=== PATIENT | female | born 1945 | race Caucasian/White ===

== ENCOUNTER → 2017-04-02 | Outpatient (CLI) | payer OTHER ==
--- NOTE | 2017-04-02 15:15 | RAD ---
PA and lateral chest radiographs 04/02/2017 Clinical history: Cough and fever for one week. PA and lateral digital radiographs of the chest were obtained. Comparison study is dated 02/27/2016. The cardiac silhouette is normal in size and configuration. The thoracic aorta is mildly tortuous. A patchy area of infiltrate/atelectasis is seen involving the lingula, inferiorly. The right lung is clear. No pneumothorax or pleural effusion is seen. Degenerative changes are seen involving the thoracic spine. Impression: Patchy area of infiltrate/atelectasis is seen involving the lingula of the left upper lobe.
== END | disposition home or self-care (01) ==
LOC: DXRADRC 14:47
PROVIDERS: ATTEND Nurse Practitioner Family
DX: R05 Cough (principal); R50.9 Fever, unspecified; R51 Headache; J45.909 Unspecified asthma, uncomplicated; Z87.891 Personal history of nicotine dependence
CPT/HCPCS: 71020

== ENCOUNTER → 2017-04-06 | Outpatient (CLI) | payer OTHER ==
--- NOTE | 2017-04-06 16:02 | RAD ---
Chest, 2 views, 04/06/2017: History: Cough, fever, chills Comparison is made to a study from 04/02/2017. The heart size is normal. There is mild ongoing streaky infiltrate in the left base involving the anterior segment of the left lower lobe and/or the inferior lingula. A similar appearance was present on the previous study. The right lung is clear. There is no evidence of pleural fluid. IMPRESSION: Mild unchanged left basilar infiltrate compatible with pneumonia.
== END | disposition home or self-care (01) ==
LOC: DXRADRC 14:55
PROVIDERS: ATTEND Nurse Practitioner Family
DX: J18.9 Pneumonia, unspecified organism (principal); R91.8 Other nonspecific abnormal finding of lung field; R50.9 Fever, unspecified; J45.909 Unspecified asthma, uncomplicated
CPT/HCPCS: 71020

== ENCOUNTER → 2017-04-20 | Outpatient (CLI) | payer OTHER ==
--- NOTE | 2017-04-20 14:38 | RAD ---
Indication pneumonia for several weeks. PA and lateral views of the chest were obtained. Comparison is made to an examination 2 weeks previously. Patchy infiltrate at the left lung base persists but appears to have improved slightly. A new finding in the chest is not seen. Heart and pulmonary vessels are similar. There is no pleural fluid or pneumothorax. IMPRESSION: Patchy infiltrate, compatible with pneumonia, persists at the left lung base but appears improved slightly relative to the study 2 weeks ago
== END | disposition home or self-care (01) ==
LOC: DXRADRC 14:25
PROVIDERS: ATTEND Nurse Practitioner Family
DX: R91.8 Other nonspecific abnormal finding of lung field (principal)
CPT/HCPCS: 71020

== ENCOUNTER → 2017-05-04 | Outpatient (CLI) | payer OTHER ==
--- NOTE | 2017-05-04 15:16 | RAD ---
Chest x-ray Indication: History of recent pneumonia. Follow-up. Technique: PA single view of the chest Comparison: Previous study from 04/20/2017 Findings: Heart is normal in size. Lungs are hyperinflated without consolidation or interstitial opacities.. Cc and left lower lobe abnormality is not seen on current study. No pneumothorax or pleural effusion. Biapical pleural thickening noted. Visualized bony thorax is within normal limits. Impression: No acute cardiopulmonary process. Findings of COPD.
== END | disposition home or self-care (01) ==
LOC: DXRADRC 14:10
PROVIDERS: ATTEND Nurse Practitioner Family
DX: J44.9 Chronic obstructive pulmonary disease, unspecified (principal); J18.9 Pneumonia, unspecified organism
CPT/HCPCS: 71020

== ENCOUNTER → 2017-08-10 | Outpatient (CLI) | payer OTHER ==
--- NOTE | 2017-08-10 17:23 | RAD ---
Indication: Fall downstairs. Technique: AP and lateral views of the sacrum. Comparison: None Findings: Degenerative disc disease noted of the visualized lumbar spine. The lumbosacral spine is in normal anatomic alignment. No acute fractures. SI joints within normal limits. Impression: No acute findings. Multilevel degenerative disc disease of the lumbar spine.
== END | disposition home or self-care (01) ==
LOC: DXRAD 12:23
PROVIDERS: ATTEND Nurse Practitioner Family
DX: M53.3 Sacrococcygeal disorders, not elsewhere classified (principal); M51.36 Other intervertebral disc degeneration, lumbar region; W10.9XXA Fall (on) (from) unspecified stairs and steps, initial encounter
CPT/HCPCS: 72220

== ENCOUNTER 2017-10-28 17:54 | Observation (INO) | payer OTHER ==
[~2017-10-28] VITALS: Ht 162.6 cm; Wt 58.1 kg
[2017-10-28] MEDS ORDERED: ASPIRIN 325 MG TABLET PO ONE (18:30)
--- NOTE | 2017-10-28 18:30 | ED.ADGEN ---
Past History Past Medical History: Bronchitis, COPD, Pneumonia, Other Adult General Chief Complaint Chief Complaint ".. I passed out leaving Dr. Cárdenas office... she was going to treat me for pneumonia...".." She was going to start me on Zithromax...".. " I am allergic to all antibiotics.. I just need some michelle tea...." HPI HPI Patient is a 72 year old female who presents with Hx. of fever, chills, coughing , dyspnea, wheezing and malaise. Patient was in Dr. Cárdenas's office and in the process of receiving x-ray to evaluate for pneumonia and patient had a complete loss of consciousness / syncopal episode. Patient sent to the emergency department for further evaluation and treatment. No other injuries in the fall and syncopal event. Patient does have some complaints of left ear pain prior to the fall. Patient does have an occasional coughing spasms with some production of yoo to brown sputum.. Patient does not get a flu vaccination. No recent travel. No specific ill contacts. Patient has had pneumonia on 3 previous episodes. Patient is accompanied with her granddaughter and daughter. Pt. reports multiple drug allergies or concerns that any antibiotic could kill her. Review of Systems Review of Systems Constitutional: Subjective history fever or chills [] Eyes: Denies change in visual acuity, redness, or eye pain [] HENT: Subjective history nasal congestion and sore throat [] Complaints of Lt ear pain. Respiratory: History of cough or shortness of breath [] Cardiovascular: No additional information not addressed in HPI [] GI: Denies abdominal pain, nausea, vomiting, bloody stools or diarrhea [] : Denies dysuria or hematuria [] Musculoskeletal: Denies back pain or joint pain [] Integument: Denies rash or skin lesions [] Neurologic: Denies headache, focal weakness or sensory changes [] Endocrine: Denies polyuria or polydipsia [] All other systems were reviewed and found to be within normal limits, except as documented in this note. Family History Family History Noncontributory Current Medications Current Medications Current Medications Medications (Trade) Dose Ordered Sig/Mehreen Start Time Stop Time Status Last Admin Dose Admin Albuterol/ Ipratropium (Duoneb) 3 ml 1X ONCE 10/28/17 19:00 10/28/17 19:10 DC Aspirin (Micah Aspirin) 325 mg 1X ONCE 10/28/17 18:30 10/28/17 19:08 DC Aspirin (Children'S Aspirin) 324 mg 1X ONCE 10/28/17 19:00 10/28/17 19:08 DC 10/28/17 19:00 324 MG Ceftriaxone Sodium 1 gm/ Sodium Chloride 50 ml @ 100 mls/hr 1X ONCE 10/28/17 18:30 10/29/17 01:34 DC Ceftriaxone Sodium (Rocephin) 1 gm 1X ONCE 10/28/17 19:15 10/28/17 19:16 DC Iohexol (Omnipaque 300 Mg/ml) 75 ml 1X ONCE 10/28/17 19:45 10/28/17 19:46 DC 10/28/17 19:51 75 ML Methylprednisolone Sodium Succinate (SOLU-Medrol 125MG VIAL) 125 mg 1X ONCE 10/28/17 19:00 10/29/17 01:34 DC Ondansetron HCl (Zofran) 4 mg PRN Q4HRS PRN 10/28/17 20:00 10/29/17 19:59 Sodium Chloride 1,000 ml @ 100 mls/hr Q10H 10/28/17 19:00 10/29/17 04:59 DC 10/28/17 19:36 100 MLS/HR Allergies Allergies Allergies Coded Allergies Type Severity Reaction Last Updated Verified Penicillins Allergy Unknown 10/28/17 Yes codeine Allergy Unknown 10/28/17 Yes diazepam Allergy Unknown 10/28/17 Yes terfenadine Allergy Unknown 10/28/17 Yes Not known currently Physical Exam Physical Exam Constitutional: Moderately acute distress, ill in appearance. [] HENT: Normocephalic, atraumatic, bilateral external ears normal, mild injection Lt. TM ,oropharynx moist, injected pharynx, no oral exudates, nose rhinorrhea] Eyes: PERRLA, EOMI, conjunctiva normal, no discharge. [] Neck: Normal range of motion, no tenderness, supple, no stridor. [] Cardiovascular: Tachycardia Heart rate regular rhythm, no murmur [] Lungs & Thorax: Bilateral breath sounds with scattered wheezes auscultation [ . Crackles over Lt lower lung valera. ] Abdomen: Bowel sounds normal, soft, no tenderness, no masses, no pulsatile masses. [Old midline gallbladder scar] Skin: Warm, dry, no erythema, no rash. Poor turgor Back: No tenderness, no CVA tenderness. [] Extremities: No tenderness, no cyanosis, no clubbing, ROM intact, no edema. [] Arthritic changes Neurologic: Alert and oriented X 3, normal motor function, normal sensory function, no focal deficits noted. [] Psychologic: Affect anxious, judgement normal, mood normal. [] Current Patient Data Vital Signs Vital Signs Date Time Temp Pulse Resp B/P (MAP) Pulse Ox O2 Delivery O2 Flow Rate FiO2 10/28/17 19:32 80 26 128/85 (99) 97 10/28/17 19:05 Room Air 10/28/17 17:54 99.4 Lab Results Laboratory Tests Test 10/28/17 18:25 10/28/17 19:20 White Blood Count 9.6 x10^3/uL (4.0-11.0) Red Blood Count 4.11 x10^6/uL (3.50-5.40) Hemoglobin 12.0 g/dL (12.0-15.5) Hematocrit 35.1 % (36.0-47.0) L Mean Corpuscular Volume 85 fL (79-100) Mean Corpuscular Hemoglobin 29 pg (25-35) Mean Corpuscular Hemoglobin Concent 34 g/dL (31-37) Red Cell Distribution Width 14.2 % (11.5-14.5) Platelet Count 242 x10^3/uL (140-400) Neutrophils (%) (Auto) 73 % (31-73) Lymphocytes (%) (Auto) 17 % (24-48) L Monocytes (%) (Auto) 9 % (0-9) Eosinophils (%) (Auto) 1 % (0-3) Basophils (%) (Auto) 0 % (0-3) Neutrophils # (Auto) 7.0 x10^3uL (1.8-7.7) Lymphocytes # (Auto) 1.7 x10^3/uL (1.0-4.8) Monocytes # (Auto) 0.8 x10^3/uL (0.0-1.1) Eosinophils # (Auto) 0.1 x10^3/uL (0.0-0.7) Basophils # (Auto) 0.0 x10^3/uL (0.0-0.2) Prothrombin Time 10.4 SEC (9.4-11.4) Prothrombin Time INR 1.0 (0.9-1.1) PTT 24 SEC (23-33) D-Dimer (Mya) 0.65 mg/L (0.00-0.50) H Sodium Level 142 mmol/L (136-145) Potassium Level 3.5 mmol/L (3.5-5.1) Chloride Level 104 mmol/L (98-107) Carbon Dioxide Level 28 mmol/L (21-32) Anion Gap 10 (6-14) Blood Urea Nitrogen 11 mg/dL (7-20) Creatinine 1.0 mg/dL (0.6-1.0) Estimated GFR (Cockcroft-Gault) 54.8 Glucose Level 88 mg/dL (70-99) Lactic Acid Level 1.6 mmol/L (0.4-2.0) Calcium Level 9.4 mg/dL (8.5-10.1) Magnesium Level 2.0 mg/dL (1.8-2.4) Total Bilirubin 0.3 mg/dL (0.2-1.0) Direct Bilirubin 0.1 mg/dL (0.0-0.2) Aspartate Amino Transferase (AST) 15 U/L (15-37) Alanine Aminotransferase (ALT) 17 U/L (14-59) Alkaline Phosphatase 72 U/L (46-116) Creatine Kinase 122 U/L (26-192) Creatine Kinase MB (Mass) 1.7 ng/mL (0.0-3.6) Creatine Kinase MB Relative Index 1.4 % (0-4) Troponin I Quantitative < 0.017 ng/mL (0-0.055) OH-Bcp-O-Type Natriuretic Peptide 83 pg/mL (0-124) Total Protein 7.2 g/dL (6.4-8.2) Albumin 3.4 g/dL (3.4-5.0) Lipase 148 U/L (73-393) Urine Collection Type Unknown Urine Color Yellow Urine Clarity Hazy Urine pH 5.5 Urine Specific [place] 1.015 Urine Protein Neg (NEG-TRACE) Urine Glucose (UA) Neg mg/dL (NEG) Urine Ketones (Stick) Neg mg/dL (NEG) Urine Blood Small (NEG) Urine Nitrite Neg (NEG) Urine Bilirubin Neg (NEG) Urine Urobilinogen Dipstick 0.2 mg/dL (0.2 mg/dL) Urine Leukocyte Esterase Neg (NEG) Urine RBC 3-5 /HPF (0-2) Urine WBC 1-4 /HPF (0-4) Urine Squamous Epithelial Cells Mod /LPF Urine Bacteria 0 /HPF (0-FEW) Urine Mucus Mod /LPF Urine Opiates Screen Neg (NEG) Urine Methadone Screen Neg (NEG) Urine Barbiturates Neg (NEG) Urine Phencyclidine Screen Neg (NEG) Urine Amphetamine/Methamphetamine Neg (NEG) Urine Benzodiazepines Screen Neg (NEG) Urine Cocaine Screen Neg (NEG) Urine Cannabinoids Screen Neg (NEG) Urine Ethyl Alcohol Neg (NEG) Influenza Type A (Rapid) Negative (NEGATIVE) Influenza Type B (Rapid) Negative (NEGATIVE) Group A Streptococcus Rapid Negative (NEGATIVE) EKG EKG My interpretation EKG shows a sinus rhythm at 81 bpm. No findings of acute STEMI with contralateral changes[] Radiology/Procedures Radiology/Procedures My interpretation of CXR show s atelectasis versus lingular[] Mata. Normal cardiac silhouette. My interpretation CT of head and cervical show no shift, mass, edema, bleed, or fracture. I interpretation of cervical shows degenerative joint changes and some mild spinal stenosis. See formal report when available CT chest shows pulmonary nodule, lingular pneumonia. No findings of PE. See formal report when available Course & Med Decision Making Course & Med Decision Making Pertinent Labs and Imaging studies reviewed. (See chart for details) Discussed presentation, testing and tx plan with Dr. Gomez. Admit for further eval and tx. [] Final Impression Final Impression 1. Bronchitis 2. History of syncopal episode[] 3. Elevated D-dimer 4. Mild Cervical Stenosis 5. Pneumonia 6. Pulmonary Nodule Problems: Dragon Disclaimer Dragon Disclaimer This electronic medical record was generated, in whole or in part, using a voice recognition dictation system. TJ LANDAVEDRE MD Oct 28, 2017 18:30
--- NOTE | 2017-10-28 18:57 | RAD ---
Indication: Syncope with fall today Technique: Noncontrast CT head was obtained. CT cervical spine includes axial images and coronal and sagittal reformatted images. No comparison is available. One or more of the following individualized dose reduction techniques were utilized for this examination: 1. Automated exposure control 2. Adjustment of the mA and/or kV according to patient size 3. Use of iterative reconstruction technique Findings: Head: The ventricles are normal in size and configuration for age. There is no acute intracranial hemorrhage or extra-axial fluid collection. There is no mass effect or midline shift. Bro-white differentiation is preserved. There is no depressed skull fracture. The included paranasal sinuses and mastoid air cells are clear. Cervical spine: There is no fracture or dislocation. Prevertebral soft tissues are within normal limits. Craniovertebral junction is unremarkable. There is mild narrowing of the interspace at C5-C6 with irregular disc osteophyte complex which has a left paracentral protruding component. Uncinate process spurring is also noted in greatest at C5-C6. There is probably mild canal stenosis and mild left foraminal narrowing at this level. Lymph nodes along the cervical chains are presumed reactive. There is presumed apical scarring. IMPRESSION: 1. No acute intracranial findings. 2. Negative for fracture or dislocation in the cervical spine. 3. Degenerative changes in the cervical spine are greatest at C5-C6. Electronically signed by: Enrique Carbajal MD (10/28/2017 6:54 PM) [facility]
[2017-10-28] MEDS ORDERED: IPRATRPIUM/ALBUTEROL 0.5/2.5MG 3 ML NEBU. NEB ONE ×2 (19:00)
[2017-10-28] MEDS ORDERED: methylPREDNISolone SOD SUCC PF 125 MG/2 ML VIAL. IV ONE (19:00)
[2017-10-28] MEDS ORDERED: IV NORMAL SALINE 1,000ML 1,000 ML IV SCH (19:00)
[2017-10-28] MEDS ORDERED: ASPIRIN 81 MG TAB.CHEW PO ONE (19:00)
[2017-10-28 19:02] LABS: BASO % 0 % (0-3); EOS # 0.1 x10^3/uL (0.0-0.7); EOS % 1 % (0-3); HEMATOCRIT 35.1 % (36.0-47.0); LYMPH # 1.7 x10^3/uL (1.0-4.8); LYMPH % 17 % (24-48); MEAN CORPUSCULAR HEMOGLOBIN 29 pg (25-35); MEAN CORPUSCULAR HGB CONC 34 g/dL (31-37); MEAN CORPUSCULAR VOLUME 85 fL (79-100); MONO # 0.8 x10^3/uL (0.0-1.1); MONO % 9 % (0-9); NEUT % 73 % (31-73); PLATELET COUNT 242 x10^3/uL (140-400); RED BLOOD COUNT 4.11 x10^6/uL (3.50-5.40); RED CELL DISTRIBUTION WIDTH 14.2 % (11.5-14.5); WHITE BLOOD COUNT 9.6 x10^3/uL (4.0-11.0)
[2017-10-28] MEDS ORDERED: cefTRIAXone IV Push 1 GM VIAL. IVP ONE (19:15)
[2017-10-28 19:18] LABS: ALBUMIN 3.4 g/dL (3.4-5.0); CALCIUM 9.4 mg/dL (8.5-10.1); DIRECT BILIRUBIN 0.1 mg/dL (0.0-0.2); GFR 54.8; POTASSIUM 3.5 mmol/L (3.5-5.1); TOTAL BILIRUBIN 0.3 mg/dL (0.2-1.0); TOTAL PROTEIN 7.2 g/dL (6.4-8.2)
[2017-10-28] MEDS ORDERED: IOHEXOL 300 MG/ML 75 ML VIAL. IV ONE (19:45)
[2017-10-28] MEDS ORDERED: ONDANSETRON PF 4 MG/2 ML VIAL. IV PRN (20:00)
[2017-10-28 20:01] LABS: BARBITURATES NEG (NEG); BENZODIAZEPINES NEG (NEG); CANNABINOIDS NEG (NEG); COCAINE NEG (NEG); METHADONE NEG (NEG); OPIATES NEG (NEG); PHENCYCLIDINE NEG (NEG)
[2017-10-28 20:02] LABS: AMPHETAMINE/METHAMPHETAMINE NEG (NEG); INFLUENZA A PATIENT NEGATIVE (NEGATIVE); INFLUENZA B PATIENT NEGATIVE (NEGATIVE)
[2017-10-28 20:03] LABS: BILIRUBIN,URINE NEG (NEG); CLARITY,URINE HAZY; COLOR,URINE YELLOW; GLUCOSE,URINE NEG (NEG); NITRITE,URINE NEG (NEG); UROBILINOGEN,URINE 0.2 mg/dL (0.2 mg/dL)
[2017-10-28 20:04] LABS: BACTERIA,URINE 0 /HPF (0-FEW); SQUAMOUS EPITHELIAL CELL,UR MOD /LPF
--- NOTE | 2017-10-28 20:15 | RAD ---
Indication: Syncope. Short of air. Cough and congestion. Technique: Axial images and coronal and sagittal reformatted images are provided. Coronal maximum intensity projection reformats are provided. 75 mL of intravenous Omnipaque 300 was administered without complication. No comparison is available. One or more of the following individualized dose reduction techniques were utilized for this examination: 1. Automated exposure control 2. Adjustment of the mA and/or kV according to patient size 3. Use of iterative reconstruction technique Findings: The contrast bolus is satisfactory. There is no filling defect to suggest pulmonary embolism. There is atheromatous disease in the thoracic aorta. There is ectasia of the ascending aorta, 3.8 cm in diameter. Heart is not enlarged. AP window lymph node is prominent measuring 22 x 20 mm. Central airways are patent. There is consolidation in the lingula with air bronchograms. There is dependent atelectasis. There is presumed apical scarring, mild. There is a 3 mm nodule abutting the pleura in the left lower lobe on image 82. There is no pleural effusion. There are degenerative changes in the spine. IMPRESSION: 1. Negative for pulmonary embolism. 2. Lingular consolidation, most likely a pneumonia. Follow-up to resolution is recommended to exclude underlying mass. Mildly prominent AP window can be followed up at that time as well. 3. Mild ectasia of the ascending aorta. 4. Pulmonary nodule. In a low-risk patient, no further workup is required. In a high-risk patient, 12 month follow-up can be considered. Recommendations are per 2017 Fleischner Society guidelines. Electronically signed by: Enrique Carbajal MD (10/28/2017 8:12 PM) [facility]
[2017-10-28] MEDS: ENOXAPARIN ** NOTE DOSE ** SYRINGE SQ SCH (20:31)
[2017-10-29] MEDS ORDERED: SIMV40TA3 PO (00:49)
[2017-10-29] MEDS ORDERED: OMEG-91 PO (00:49)
[2017-10-29] MEDS ORDERED: OLOP2.5D5 EACHEYE (00:49)
[2017-10-29] MEDS ORDERED: GLUC1CAP48 PO (00:49)
[2017-10-29] MEDS ORDERED: OMEP20CA9 PO (00:49)
[2017-10-29] MEDS ORDERED: cefTRIAXone IV Push 1 GM VIAL. IVP ONE (02:00)
[2017-10-29] MEDS ORDERED: methylPREDNISolone SOD SUCC PF 125 MG/2 ML VIAL. IV ONE (02:00)
--- NOTE | 2017-10-29 02:26 | NUR ---
Pt is a 72 yr old female admitted from the ER with pneumonia. Pt was brought to unit by EMS via gurney accompanied by family members. Pt vitals taken, head to toe assessment, medical hx and current medications recorded. Unit routines given to pt. Pt is resting comfortably with family by her side.
[2017-10-29 03:04] VITALS: BP 107/51
--- NOTE | 2017-10-29 03:51 | EKG ---
[address] [address] Test Date: 2017-10-28 Test Time: 18:08:08 Pat Name: BRADLEY RUBIO Department: Room: ICU06 1 Gender: F Dictaphone Technician: : [id number] Requested By: TJ LANDAVERDE Order Number: [id number] Reading MD: Asif Portillo MD Measurements Intervals [place] Rate: 81 P: 0 LA: 124 QRS: 14 QRSD: 82 T: 12 QT: 348 QTc: 405 Interpretive Statements SINUS RHYTHM NORMAL ECG Electronically Signed On 11-08-2017 15:04:27 CDT by Asif Portillo MD
[2017-10-29 06:50] LABS: BASO % 0 % (0-3); EOS % 0 % (0-3); HEMATOCRIT 36.9 % (36.0-47.0); HEMOGLOBIN 12.5 g/dL (12.0-15.5); LYMPH # 0.9 x10^3/uL (1.0-4.8); LYMPH % 10 % (24-48); MEAN CORPUSCULAR HEMOGLOBIN 29 pg (25-35); MEAN CORPUSCULAR HGB CONC 34 g/dL (31-37); MEAN CORPUSCULAR VOLUME 86 fL (79-100); MONO # 0.1 x10^3/uL (0.0-1.1); MONO % 1 % (0-9); NEUT # 7.3 x10^3uL (1.8-7.7); NEUT % 88 % (31-73); PLATELET COUNT 242 x10^3/uL (140-400); RED CELL DISTRIBUTION WIDTH 14.3 % (11.5-14.5); WHITE BLOOD COUNT 8.3 x10^3/uL (4.0-11.0)
[2017-10-29 06:54] LABS: CREATININE 0.8 mg/dL (0.6-1.0); GFR 70.9; POTASSIUM 4.1 mmol/L (3.5-5.1)
--- NOTE | 2017-10-29 07:39 | RAD ---
PROCEDURE: CHEST PA LATERAL CLINICAL INDICATION: syncope COMPARISON: Previous study from 05/04/2017 FINDINGS: No pneumothorax identified. Cardiac and mediastinal contours unremarkable. Small bowel patchy opacity is seen in the lingula. Otherwise, lungs are clear.. No acute osseous abnormalities identified. IMPRESSION: Small patchy opacity in the lingula may represent a focus of pneumonia. Follow-up chest x-ray in 3 months recommended.
[2017-10-29] MEDS ORDERED: ASPIRIN 81 MG TAB.CHEW PO SCH (08:00)
[2017-10-29] MEDS: ENOXAPARIN ** NOTE DOSE ** SYRINGE SQ SCH (08:43)
[2017-10-29] MEDS ORDERED: AZITHROMYCIN 250 MG TABLET. PO SCH (09:00)
[2017-10-29] MEDS ORDERED: LACTOBACILLUS RHAMNOSUS GG 1 CAPSULE. PO SCH (09:00)
[2017-10-29 11:41] VITALS: BP 135/70
--- NOTE | 2017-10-29 13:12 | RAD ---
DOPPLER CAROTID BILAT Clinical Indication: syncope. Procedure: Pulsed wave and color-flow duplex imaging was utilized to evaluate the extracranial carotid arteries. Comparison: None. Findings: RIGHT SIDE: No significant atherosclerotic plaque on yoo-scale images. Distal CCA peak systolic velocity 50 cm/sec. ICA peak systolic velocity 46 cm/sec. The right ICA/CCA ratio is 0.9. Flow within the right vertebral artery and right ECA is directed antegrade. LEFT SIDE: Mild atherosclerotic plaque on yoo-scale images. Distal CCA peak systolic velocity 51 cm/sec. ICA peak systolic velocity 46 cm/sec. The left ICA/CCA ratio is 0.9. Flow within the left vertebral artery and left ECA is directed antegrade. Carotid legend: CCA = common carotid artery ICA = internal carotid artery ECA = external carotid artery IMPRESSION: Minimal atherosclerotic disease in the bilateral carotid system without significant stenosis.
--- NOTE | 2017-10-29 13:44 | HP ---
ADMIT DATE: 10/28/2017 HISTORY OF PRESENT ILLNESS: This is a 72-year-old female patient who apparently has been complaining of recurrent episodes of fever, chills, coughing, dyspnea, wheezing, and malaise. She was seen in Dr. Cárdenas's office and in the process of receiving a chest x-ray to evaluate for possible pneumonia. The patient had complete loss of consciousness/syncopal episode. She was sent to the Emergency Department for further evaluation and treatment. No other injuries in the fall or syncopal event. She does have complaint of left ear pain prior to the fall. Does have occasional coughing spasm with some production of yoo to brown sputum. She does not get any flu vaccination. No recent travel, no specific ill contact. She apparently has pneumonia, 3 previous episodes, treated as an outpatient. PAST MEDICAL HISTORY: Significant for hyperlipidemia, fibromyalgia, bronchial asthma, gastroesophageal reflux disease. Apparently last year has 3 episodes of pneumonia treated as an outpatient. PAST SURGICAL HISTORY: Significant for tubal ligation, multiple breast biopsies, cholecystectomy, total abdominal hysterectomy, bilateral salpingo-oophorectomy, hemorrhoidectomy, and left femoral hernia repair. ALLERGIES: She is allergic to ANTIHISTAMINE, ALKALINE ETHANOL, TENORMIN, ETHYLENEDIAMINE ANTIHISTAMINE, AND IN ALL MEAN AT ANY ANTIHISTAMINE, PIPERAZINE, PENICILLIN, CODEINE, and DIAZEPAM. MEDICATIONS: She is currently on following medications: Simvastatin 40 mg at bedtime, omega-3 fatty acid for Lovaza 1 capsule once a day, olopatadine 1 drop to both eyes as needed, omeprazole 20 mg once a day, and glucosamine chondroitin 1 p.o. daily. FAMILY HISTORY: She has 1 brother younger and healthy. Her father at the age of 87 because of congestive heart failure. Mother is alive at age 90, had had what seemed to be left-sided hemiplegia and dysphagia. SOCIAL HISTORY: Her son lives with her. She is an ex-smoker, smoked only a short period of time. She does not drink alcohol or use any drugs. She is a homemaker REVIEW OF SYSTEMS: The patient denied any blurring of vision, cataract, glaucoma, or macular degeneration. Denied any earache, tinnitus, or sensorineural deafness. Denied any nosebleeds, stuffy nose, or postnasal drip. Denied any sore throat, sore tongue, toothache, hoarseness of voice, or difficulty swallowing. Denied any nausea, vomiting, diarrhea, or constipation. Denied any hematemesis, melena, or hematochezia. Denied any dysuria, frequency, or hematuria. Denied any chest pain or shortness of breath. Did complain of cough with chest tightness and wheezing. She also has some brownish to yellowish sputum. The patient was evaluated in the Emergency Room. PHYSICAL EXAMINATION: GENERAL: On arrival, she was slightly tachypneic, pale, but no jaundice, cyanosis, or thyromegaly. No jugular venous distension. No limb edema. VITAL SIGNS: Her heart rate was 88, blood pressure was 104/52, temperature was 99.4, respiratory rate was 21, and oxygen saturation was 98% on room air. HEAD, EYES, EARS, NOSE, AND THROAT: Showed normocephalic, atraumatic. NECK: Supple. HEART: Showed normal first and second heart sounds with no gallop, rub, or murmur. CHEST: Clear to auscultation. No crepitation or rhonchi. ABDOMEN: Distended, soft, nontender. No guarding or rigidity. No organomegaly. Hernial orifices intact. Bowel sounds normal. NEUROLOGIC: She was awake, alert, responding appropriately. Cranial nerves intact. She moves extremities without difficulty. She apparently ambulates without assistance or assistive devices. She walks about 5 miles according to her. LABORATORY DATA: Her lab work in the Emergency Room showed that her white cell count was 9600, hemoglobin 12, hematocrit 35, MCV 85, and platelet count 242,000. Her chemistry showed a serum sodium of 142, potassium 3.5, chloride 104, bicarbonate 28, anion gap of 10, BUN 11, creatinine 1. Estimated GFR was 55 mL per minute. His glucose was 88, calcium was 9.4, magnesium 2. Total bilirubin, AST, ALT, alkaline phosphatase were normal. Her beta-natriuretic peptide is normal at 83. Total protein was 7.2, albumin 3.4. Serum lipase was 148. Her prothrombin time was 10.4, INR 1, aPTT was 24, and D-dimer was 0.65. Urinalysis was unremarkable. Toxic screen was negative. She apparently had a CT scan of the head, which showed no acute intracranial finding, negative for fracture or dislocation of the cervical spine. Degenerative changes in cervical spine are greatest at C5-C6. Her chest x-ray showed small patchy opacity in the lingula that represents a focus of pneumonia. Followup chest x-ray in [address] scan of the chest was negative for pulmonary embolism; however, she has lingular consolidation, most likely pneumonia, mild ectasia of the ascending aorta, pulmonary nodule in a low-risk patient. No further workup is required. So, the patient was admitted with a syncopal episode and also pneumonia. PLAN: To continue with her medication. Continue with IV fluid and IV steroids. We will obviously repeat her lab work tomorrow and decide on further management accordingly. GAEL GUTHRIE MD DR: TONY/aida JOB#: [id number] / [id number]
[2017-10-29] MEDS ORDERED: CEFP200T PO (13:54)
[2017-10-29] MEDS ORDERED: AZIT250T PO (13:54)
--- NOTE | 2017-10-29 14:35 | NUR ---
NSG NOTE; DISCHARGE VERBAL AND WRITTEN DISCHARGE INSTRUCTIONS GIVEN TO PT WITH VERBAL UNDERSTANDING. ABX X2 RX TRANSMITTED TO PT' PHARMACY DISCHARGE TO HOME AT 1430 VIA W/C ACCOMP BY DAUGHTER
[2017-10-29] MEDS ORDERED: methylPREDNISolone SOD SUCC PF 40 MG/ML VIAL. IV SCH (21:00)
[2017-10-29] MEDS ORDERED: cefTRIAXone IV Push 1 GM VIAL. IVP SCH (21:00)
--- NOTE | 2017-10-29 21:10 | DS ---
DATE OF DISCHARGE: 10/29/2017 HOSPITAL COURSE: The patient is a 72-year-old female patient, who apparently had syncopal episode while at her primary care physician, having chest x-ray done. She was brought to the Emergency Room, was extensively investigated and was admitted to the ICU, to be monitored closely. Her CT scan showed no evidence of any pulmonary embolism, but she did have lingular pneumonia for which she was started on IV Rocephin and Zithromax. She has had a Doppler ultrasound of both carotid arteries, which showed basically minimal atherosclerotic disease and bilateral carotid systems without significant stenosis. She has had no further episode of syncope here. No arrhythmias detected and a decision was made to discharge her home to continue treatment on oral antibiotic in the form of cefpodoxime as well as Zithromax. PHYSICAL EXAMINATION: GENERAL: When I saw her this afternoon, she looked well and was clearly in no apparent respiratory distress, pale, but no jaundice, cyanosis or thyromegaly. No jugular venous distention. No limb edema. VITAL SIGNS: Her heart rate was 73, blood pressure 135/70, temperature was 99.3, respiratory rate was 20, and oxygen saturation was 98%. HEAD, EYES, EARS, NOSE AND THROAT: Showed normocephalic, atraumatic. NECK: Supple. HEART: Showed normal first and second heart sounds with no gallop, rub or murmur. CHEST: Clear to auscultation. No crepitation or rhonchi. ABDOMEN: Distended, soft, nontender. No guarding or rigidity. No organomegaly. Hernial orifice intact. Bowel sounds normal. NEUROLOGIC: She is awake, alert, responding appropriately. Cranial nerves intact. EXTREMITIES: She moves extremities without difficulty. She ambulates without assistance or assistive device. She has been up and about, has no further syncopal episode. LABORATORY DATA: Her white cell count this morning was 8300, hemoglobin 12.5, hematocrit 37, MCV 86 and platelet count 242,000. Her chemistry this morning showed a serum sodium of 143, potassium 4.1, chloride 107, bicarbonate 27, anion gap of 9, BUN 9, creatinine 0.8, estimated GFR was 71 mL per minute. Her glucose was 163, calcium was 9. Her 3 sets of cardiac enzymes were negative. Her prothrombin time was 10.4, INR 1, APTT was 24 and D-dimer was 0.65. DISCHARGE MEDICATIONS: The patient will be discharged home to continue on following medications: Glucosamine chondroitin sulfate 1 capsule once a day, Olopatadine 1 drop to both eyes as needed, omega 3 fatty acid or Lovaza once a day, omeprazole 20 mg daily and simvastatin 40 mg at bedtime. She was also discharged home on Zithromax 250 mg daily for 7 days and cefpodoxime proxetil for Vantin 200 mg twice a day for 7 days. FINAL DISCHARGE DIAGNOSES: 1. Community-acquired pneumonia. 2. Syncopal episode, cause of which is not clear. She has had no further episodes of syncope. She remained hemodynamically stable, afebrile, no arrhythmias noted. 3. She has hyperlipidemia. 4. Gastroesophageal reflux disease. GAEL GUTHRIE MD DR: TONY/aida JOB#: [id number] / [id number]
[2017-10-30] MEDS ORDERED: ENOXAPARIN 40 MG/0.4 ML DISP.SYRIN. SQ SCH (09:00)
== END 2017-10-29 14:30 | disposition home or self-care (01) ==
LOC: ER 17:54 → INTOOBSV 20:00 → ICU 20:00
PROVIDERS: ADMIT Internal Medicine; ATTEND Internal Medicine
DX: R55 Syncope and collapse (principal); J18.9 Pneumonia, unspecified organism; J44.0 Chronic obstructive pulmonary disease with (acute) lower respiratory infection; E78.5 Hyperlipidemia, unspecified; K21.9 Gastro-esophageal reflux disease without esophagitis; Z82.49 Family history of ischemic heart disease and other diseases of the circulatory system; Z87.891 Personal history of nicotine dependence; Z90.710 Acquired absence of both cervix and uterus
CPT/HCPCS: 36415; 70450; 71046; 71275; 72125; 80048; 80076; 80307; 81001; 82553; 83605; 83690; 83735; 83880; 84443; 84484; 85025; 85379; 85610; 85730; 87040; 87070; 87641; 87804; 87880; 93005; 93880; 96361; 96372; 96374; 96375; 99285; G0238; G0378; J0456; J0696; J1650; J2930; Q9967; 96360; G0379; G0479; J7030

== ENCOUNTER → 2017-11-22 | Outpatient (CLI) | payer OTHER ==
[2017-10-29 11:41] VITALS: BP 135/70
[~2017-11-22] MED LIST: AZIT250T PO; CEFP200T PO; GLUC1CAP48 PO; OLOP2.5D5 EACHEYE; OMEG-91 PO; OMEP20CA9 PO; SIMV40TA3 PO
--- NOTE | 2017-11-22 12:51 | RAD ---
2 views of the Chest 11/22/2017 2:00 AM Indication: COUGH, PNEUMONIA Comparison: Chest radiograph October 28, 2017 Findings: Previously seen lingular infiltrate has resolved in the interim. There is no new focal consolidation or infiltrate identified. There is no effusion or pneumothorax. The cardiomediastinal silhouette and pulmonary vasculature are within normal limits. No acute osseous changes are identified. Impression: 1.No evidence of acute cardiopulmonary process. 2. Resolution of the previously seen lingular infiltrate
== END | disposition home or self-care (01) ==
LOC: PMG 10:52
PROVIDERS: ATTEND Nurse Practitioner Family
DX: J18.9 Pneumonia, unspecified organism (principal)
CPT/HCPCS: 71046

== ENCOUNTER → 2017-12-31 | Outpatient (CLI) | payer OTHER ==
--- NOTE | 2017-12-31 16:54 | RAD ---
Chest, PA and Lateral: Technique: PA and lateral views of the chest were obtained. History: Chest pain. Comparison: 11/22/2017. Findings: The heart and pulmonary vasculature appear within normal limits. The lungs are clear. The pleural margins are clear. Impression: No acute chest process is seen. Electronically signed by: Ceasar Palafox MD (12/31/2017 4:51 PM) [id number]
--- NOTE | 2017-12-31 17:20 | RAD ---
Lumbar spine, 3 views, 12/31/2017: HISTORY: Low back pain There is a mild right convexity lumbar scoliosis. Slight loss of height of the L1 vertebral body appears unchanged since the 10/28/2017 CT exam. There is mild disc space narrowing at multiple levels with vacuum disc phenomena and moderate marginal spurs. There are moderate degenerative changes involving multiple facet joints. No acute fracture or subluxation is evident. Aortic calcific plaquing is present. IMPRESSION: 1. Mild lumbar scoliosis. 2. Moderate multilevel degenerative change. 3. Old mild L1 vertebral compression deformity Electronically signed by: Yaya Villaseñor MD (12/31/2017 5:16 PM) [facility]
== END | disposition home or self-care (01) ==
LOC: PMG 11:27
PROVIDERS: ATTEND Nurse Practitioner Family
DX: M41.86 Other forms of scoliosis, lumbar region (principal); M48.56XD Collapsed vertebra, not elsewhere classified, lumbar region, subsequent encounter for fracture with routine healing; J18.9 Pneumonia, unspecified organism
CPT/HCPCS: 71046; 72100

== ENCOUNTER → 2018-11-14 | Outpatient (CLI) | payer OTHER ==
[2018-11-14 19:25] LABS: BASO % 0 % (0-3); EOS # 0.1 x10^3/uL (0.0-0.7); EOS % 1 % (0-3); HEMATOCRIT 39.2 % (36.0-47.0); LYMPH % 30 % (24-48); MEAN CORPUSCULAR HEMOGLOBIN 28 pg (25-35); MEAN CORPUSCULAR HGB CONC 33 g/dL (31-37); MEAN CORPUSCULAR VOLUME 84 fL (79-100); MONO # 0.4 x10^3/uL (0.0-1.1); MONO % 6 % (0-9); NEUT # 4.3 x10^3uL (1.8-7.7); NEUT % 64 % (31-73); PLATELET COUNT 303 x10^3/uL (140-400); RED BLOOD COUNT 4.66 x10^6/uL (3.50-5.40); RED CELL DISTRIBUTION WIDTH 15.6 % (11.5-14.5); WHITE BLOOD COUNT 6.7 x10^3/uL (4.0-11.0)
[2018-11-14 19:31] LABS: ALBUMIN/GLOBULIN RATIO 1.1 (1.0-1.7); CALCIUM 9.7 mg/dL (8.5-10.1); CREATININE 0.9 mg/dL (0.6-1.0); GFR 61.7; TOTAL BILIRUBIN 0.2 mg/dL (0.2-1.0); TOTAL PROTEIN 7.7 g/dL (6.4-8.2)
--- NOTE | 2018-11-15 08:12 | RAD ---
3 view study of the right foot Clinical indications: Right foot pain for one week and tenderness to the bottom of the foot. FINDINGS: No acute fracture or dislocation or lytic process is seen. 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 No plantar spur of the calcaneus is seen. There is a small exostosis of the plantar lateral aspect of the proximal fifth metatarsal metaphysis. No periosteal reaction is evident. IMPRESSION: No acute fracture. Electronically signed by: Yves Graves MD (11/15/2018 8:09 AM) [id number]
[2018-11-15 13:59] LABS: FREE T4 0.91 ng/dL (0.76-1.46); THYROID STIM HORMONE (TSH) 2.07 uIU/mL (0.358-3.740)
[2018-11-17 19:07] LABS: ANA INTERP Negative (.)
== END | disposition home or self-care (01) ==
LOC: PMG 18:41
PROVIDERS: ATTEND Physician Assistant Medical
DX: M19.071 Primary osteoarthritis, right ankle and foot (principal); M89.9 Disorder of bone, unspecified; E78.5 Hyperlipidemia, unspecified; R63.4 Abnormal weight loss; M79.7 Fibromyalgia
CPT/HCPCS: 36415; 73630; 80053; 80061; 82607; 82728; 83540; 83550; 84439; 84443; 84481; 85025; 86038

== ENCOUNTER → 2019-03-06 | Outpatient (CLI) | payer OTHER ==
[~2019-03-06] MED LIST changes: +OMEP20CA10 PO; -OMEP20CA9 PO
--- NOTE | 2019-03-06 15:40 | RAD ---
EXAM: Abdomen acute complete. HISTORY: Pain. COMPARISON: None. FINDINGS: A frontal view of the chest and frontal upright and supine views of the abdomen are obtained. There is no infiltrate, pleural effusion or pneumothorax. The heart is normal in size. There is gas and stool within the colon. No abnormally dilated loop of bowel is seen. There is no free air. There is lumbar scoliosis. IMPRESSION: 1. No acute pulmonary finding. 2. Nonobstructive bowel gas pattern. Electronically signed by: Catarina Velarde MD (03/06/2019 3:38 PM) [place] [id number]
== END | disposition home or self-care (01) ==
LOC: DXRAD 14:00
PROVIDERS: ATTEND Physician Assistant Medical
DX: K59.01 Slow transit constipation (principal); M41.86 Other forms of scoliosis, lumbar region
CPT/HCPCS: 74022

== ENCOUNTER → 2019-07-04 | Outpatient (CLI) | payer OTHER ==
[~2019-07-04] MED LIST changes: +OMEP-229 PO; -OMEP20CA10 PO; +SIMV40TA18 PO; -SIMV40TA3 PO
--- NOTE | 2019-07-05 12:50 | RAD ---
PA and lateral chest radiograph 07/04/2019 CLINICAL HISTORY: Shortness of breath on exertion. PA and lateral digital radiographs of chest were obtained. Comparison study is dated 12/31/2017. The cardiac silhouette is normal in size. The thoracic aorta is mildly tortuous. Atherosclerotic calcification of the thoracic aorta is seen. No acute pulmonary infiltrate is noted. No pneumothorax or pleural effusion is seen. Degenerative changes are seen involving the thoracic spine. IMPRESSION: No acute abnormality is seen. Electronically signed by: Alex Schaefer MD (07/05/2019 12:47 PM) [id number]
== END | disposition home or self-care (01) ==
LOC: RAD 19:06
PROVIDERS: ATTEND Family Medicine
DX: I70.0 Atherosclerosis of aorta (principal); M47.814 Spondylosis without myelopathy or radiculopathy, thoracic region
CPT/HCPCS: 71046

== ENCOUNTER → 2019-12-19 | Outpatient (CLI) | payer OTHER ==
[~2019-12-19] MED LIST changes: -OMEP-229 PO; +OMEP20CA16 PO
--- NOTE | 2019-12-19 20:33 | RAD ---
Indications: Fibromyalgia. Pain. Three-view right shoulder study: No acute fracture dislocation or lytic process is seen. There is mild spurring and joint space narrowing of the glenohumeral joint. There is moderate spurring and joint space during of the right AC joint. No AC joint separation is seen. 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 No acute osseous abnormality. 2 view right elbow study: No joint effusion is seen. No acute fracture or dislocation or lytic process is seen. Mild soft tissue swelling of the olecranon bursa is evident. Mild calcification of the common extensor tendon mechanism is seen. IMPRESSION: No acute osseous abnormality. Mild olecranon bursitis. Electronically signed by: Yves Graves MD (12/19/2019 8:30 PM) [facility] [place]
--- NOTE | 2019-12-19 20:33 | RAD ---
Indications: Fibromyalgia. Pain. Three-view right shoulder study: No acute fracture dislocation or lytic process is seen. There is mild spurring and joint space narrowing of the glenohumeral joint. There is moderate spurring and joint space during of the right AC joint. No AC joint separation is seen. 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 No acute osseous abnormality. 2 view right elbow study: No joint effusion is seen. No acute fracture or dislocation or lytic process is seen. Mild soft tissue swelling of the olecranon bursa is evident. Mild calcification of the common extensor tendon mechanism is seen. IMPRESSION: No acute osseous abnormality. Mild olecranon bursitis. Electronically signed by: Yves Graves MD (12/19/2019 8:30 PM) [facility] [place]
== END | disposition home or self-care (01) ==
LOC: DXRAD 19:08
PROVIDERS: ATTEND Physician Assistant
DX: M70.21 Olecranon bursitis, right elbow (principal); M19.011 Primary osteoarthritis, right shoulder; M25.821 Other specified joint disorders, right elbow; M77.8 Other enthesopathies, not elsewhere classified; M79.89 Other specified soft tissue disorders
CPT/HCPCS: 73030; 73070

== ENCOUNTER → 2020-12-19 | Outpatient (CLI) | payer OTHER ==
[~2020-12-19] MED LIST changes: +OMEG-206 PO; -OMEG-91 PO
--- NOTE | 2020-12-19 11:24 | RAD ---
EXAM: DUAL ENERGY X-RAY ABSORPTIOMETRY (DEXA). HISTORY: Postmenopausal screening. FINDINGS: The lowest measured T-score is -1.5 in the right hip, based on a bone mineral density of 0. 767 g/cm^2. Refer to the worksheets for full detail. No comparison examinations are available. IMPRESSION: 1. Low bone mass. Bone mineral density yields a T-score between -1.0 and -2.5. Fracture risk is incre ased. 2. FRAX report: Not calculated. METHODOLOGY: Dual energy x-ray absorptiometry was performed to measure bone mineral density. The foll owing analysis is based on the 2019 Official Positions of the International Society for Clinical Dens itometry: Measurements of the hips and the average of L1-L4 are preferred. When the spine and/or hip cannot be feasibly measured or interpreted, or in the setting of hyperparathyroidism, distal radial bone minera l density may be measured. The lumbar spine T-score is based on the average bone mineral density of L1-L4. In the setting of art ifact or anatomic abnormality, some lumbar levels may be excluded, and the remaining levels used for calculation. A single lumbar level is not used for diagnosis, and if only a single level is available for assessment, another anatomic site will be used to assign a diagnosis. The hip T-score is based on the bone mineral density measurement of the femoral neck or total proxima l femur of either side, whichever is lowest. Bilateral mean values are not used for diagnosis. The forearm T-score is derived from 33% of the distal radius of the nondominant forearm. Electronically signed by: Catarina Velarde MD (12/19/2020 11:22 AM) [id number]
--- NOTE | 2020-12-20 15:28 | RAD ---
EXAM: Bilateral screening mammogram. HISTORY: 75-year-old female presents for screening mammography. TECHNIQUE: Full-field digital craniocaudal and mediolateral oblique views of both breasts are obtaine d for evaluation. Computer aided detection was applied. COMPARISON: 03/10/2019 BREAST PARENCHYMAL DENSITY: Level D - Extremely dense. FINDINGS: There is no new suspicious mass, microcalcification or region of architectural distortion. IMPRESSION: BI-RADS Category 2: Benign finding(s). RECOMMENDATION: Annual mammography is recommended. If your mammogram demonstrates that you have dense breast tissue, which could hide abnormalities, and if you have other risk factors for breast cancer that have been identified, you might benefit from s upplemental screening tests that may be suggested by your ordering physician. Dense breast tissue, i n and of itself, is a relatively common condition. This information is not provided to cause undue c oncern, but rather to raise your awareness and to promote discussion with your physician regarding th e presence of other risk factors, in addition to dense breast tissue. A report of your mammography re sults will be sent to you and your physician. You should contact your physician if you have any ques tions or concerns regarding this report. Mammography is a sensitive method for finding small breast cancers, but it does not detect them all a nd is not a substitute for careful clinical examination. A negative mammogram does not negate a clin ically suspicious finding and should not result in delay in biopsying a clinically suspicious abnorma lity. PQRS compliance statement - Patient information was entered into a reminder system with a target due date for the next mammogram. "Our facility is accredited by the [employer] Mammography Program." Electronically signed by: Catarina Velarde MD (12/20/2020 3:26 PM) [id number]
== END ==
LOC: MAMMO 09:42
PROVIDERS: ATTEND Physician Assistant Medical
DX: Z12.31 Encounter for screening mammogram for malignant neoplasm of breast (principal); M89.9 Disorder of bone, unspecified; N95.9 Unspecified menopausal and perimenopausal disorder
CPT/HCPCS: 77067; 77080

== ENCOUNTER → 2021-03-20 | Outpatient (CLI) | payer OTHER ==
--- NOTE | 2021-03-20 17:55 | RAD ---
XR CHEST 2V History: Reason: SHORT OF AIR / Spl. Instructions: / History: Comparison: July 04, 2019 Findings: No consolidation or pleural effusion. Normal heart size. No pneumothorax. Chronic upper lumbar compre ssion deformity, unchanged. Impression: 1. No acute cardiopulmonary process. Electronically signed by: George Waller DO (03/20/2021 5:53 PM) [id number]
== END ==
LOC: RAD 13:34
PROVIDERS: ATTEND Family Medicine
DX: M43.8X6 Other specified deforming dorsopathies, lumbar region (principal); R06.2 Wheezing
CPT/HCPCS: 71046